=== PATIENT | male | born 1985 | race Caucasian/White ===

== ENCOUNTER 2018-05-31 01:00 | Emergency (ER) | payer OTHER ==
[~2018-05-31] VITALS: Ht 182.9 cm; Wt 95.3 kg
--- NOTE | 2018-06-01 06:58 | EKG ---
[facility] [address] [place] [address] Signed Normal sinus rhythm Normal ECG No previous ECGs available Confirmed by JENSEN LAW MD ([id number] on 06/01/2018 6:58:25 AM Electronically Signed By: JENSEN LAW MD 06/01/18 0658 PATIENT NAME: CLAUDE RAMIRES Electrocardiogram DATE OF : 81 PHYSICIAN: JENSEN LAW MD REPORT #: [id number] REPORT IS CONFIDENTIAL AND NOT TO BE RELEASED WITHOUT AUTHORIZATION
== END 2018-05-31 03:30 | disposition home or self-care (01) ==
LOC: ED 01:00
DX: R07.89 Other chest pain (principal); F41.9 Anxiety disorder, unspecified; R06.4 Hyperventilation; F17.200 Nicotine dependence, unspecified, uncomplicated; F31.9 Bipolar disorder, unspecified; F10.20 Alcohol dependence, uncomplicated; Z88.0 Allergy status to penicillin
CPT/HCPCS: 71046; 80053; 84484; 85025; 93005; 93010; 99285-25